=== PATIENT | male | born 1980 | race Caucasian/White ===

== ENCOUNTER 2022-01-23 08:07 | Emergency (ER) | payer OTHER, SELFPAY ==
--- NOTE | 2022-01-23 08:10 | ED.URI ---
HPI - URI/Sore Throat General Chief Complaint: Upper Respiratory Infection Stated Complaint: sore throat and burning sensation in nose Time Seen by Provider: 01/23/22 08:10 Source: patient and RN notes reviewed History of Present Illness HPI Narrative: Patient is a 41-year-old male who presents the urgent care with complaints of sore throat and burning nasal passage. Patient states that he is also had some itching in his ears. Patient states that he does a lot of smoking of meat and feels that he may have inhaled some smoke a few days ago. Patient also states that he does a lot of sighing and does not wear a mask. States that he wakes up in the throat seems fine and develops into more swollen sore throat throughout the day. Patient took his daughter's liquid amoxicillin for the last 3 days. His daughter was negative for strep. Patient is also been using a nasal spray but is uncertain of which one. Patient denies any fever, chills, nausea, vomiting. Denies of any ill contacts. No other acute complaints. No acute distress noted. Patient aware of the plan of care. Some parts of this dictation were generated by voice recognition software and may contain typographical and/or grammatical inaccuracies. Related Data Allergies Allergy/AdvReac Type Severity Reaction Status Date / Time No Known Allergies Allergy Verified 01/23/22 08:22 Review of Systems Review of Systems: CONSTITUTIONAL: Denies fever, chills, or sweats. EYES: Denies visual changes, redness, or discharge. ENT: Reports of a burning in the nasal passage and sore throat CARDIOVASCULAR: Denies chest pain, palpitations, or edema. RESPIRATORY: Denies cough or dyspnea. GASTROINTESTINAL: Denies abdominal pain, nausea, vomiting, or diarrhea. GENITOURINARY: Denies dysuria or hematuria. SKIN: Denies rash or itching. MUSCULOSKELETAL: Denies back pain, joint pain, or myalgia. NEUROLOGIC: Denies headache, numbness, or weakness. All other systems reviewed are negative, except as documented in HPI. Who is PMFSH Comments At the time of my signature, I reviewed and agree with the nursing past medical, surgical, social, and family history. There is no relevant family history pertinent to the patient complaint. Exam Narrative: GENERAL: This is a well-nourished, well-developed patient, in no apparent distress. HEAD: normocephalic, atraumatic. EYES: PERRL. Sclera clear/white. Vision is grossly intact. EARS: External ears normal, auditory canals clear and without drainage, TMs normal without perforation. Hearing grossly intact. NOSE: External nose normal with no obvious nasal discharge, bilateral erythemic inflamed inner nostrils with clear rhinorrhea. THROAT: Mucous membranes moist, mild erythema noted posterior pharynx with moderate postnasal drainage NECK: Neck supple, non-tender mild bilateral submandibular lymphadenopathy CARDIOVASCULAR: Regular rate and rhythm without murmurs, gallops, or rubs. RESPIRATORY: Clear to auscultation. Breath sounds equal bilaterally. No wheezes, rales, or rhonchi. SKIN: warm, intact with no suspicious lesions or rash, good texture and turgor. NEURO: awake, alert, and oriented to person, place and time. There were no obvious focal neurologic abnormalities. EXTREMITIES: No clubbing, cyanosis, or edema. Course Course Level of Care: Express Care Visit Vital Signs Vital signs: Vital Signs Temperature 98.1 F 01/23/22 08:19 Pulse Rate 99 01/23/22 08:19 Respiratory Rate 18 01/23/22 08:19 Blood Pressure 153/93 H 01/23/22 08:19 Pulse Oximetry 100 01/23/22 08:19 Temperature 98.1 F 01/23/22 08:19 Pulse Rate 99 01/23/22 08:19 Respiratory Rate 18 01/23/22 08:19 Blood Pressure 153/93 H 01/23/22 08:19 Pulse Oximetry 100 01/23/22 08:19 Reviewed-patient is informed that they may have pre-hypertension or hypertension based on a blood pressure reading in the department. I recommend the patient call the primary care provider listed on
[2022-01-23 08:19] VITALS: BP 153/93; PULSE 99; RESP 18; TEMP 36.7; O2SAT 100
== END 2022-01-23 08:34 | disposition home or self-care (01) ==
PROVIDERS: Emergency Provider Nurse Practitioner Family
DX: J32.9 Chronic sinusitis, unspecified (principal); J02.9 Acute pharyngitis, unspecified
CPT/HCPCS: 99213; G0463